=== PATIENT | male | born 1975 | race Hispanic/Latino ===

== ENCOUNTER 2023-07-10 01:13 | Emergency (ER) | payer SELFPAY ==
[2023-07-10] MEDS ORDERED: Mag-Al Plus 1200 MG/1200 MG/120 MG/30 ML UDCUP ONE (01:38)
[2023-07-10 01:40] LABS: #Basophils 0.1 thou/uL (0.0-0.2); #Eosinphils 0.1 thou/uL (0.0-0.7); #Monocytes 0.6 thou/uL (0.11-0.59); %Basophils 0.8 % (0.0-1.0); %Eosinophils 0.8 % (0.0-10.0); %Lymphocytes 14.2 % (21.0-51.0); %Monocytes 4.6 % (0.0-10.0); %Neutrophils 79.6 % (42.0-75.0); Hematocrit 47.9 % (42.0-52.0); Hemoglobin 16.3 g/dL (14.0-18.0); Mean Corpuscular Hemoglobin 31.2 pg (27.0-31.0); Mean Corpuscular Volume 91.8 fl (78.0-98.0); Mean Platelet Volume 9.5 fL (7.4-10.4); Platelet Count 276 10x3/uL (130-400); RBC Distribution Width 11.7 % (11.5-14.5); Red Blood Cell (RBC) Count 5.22 mill/uL (4.70-6.10); White Blood Cell (WBC) Count 13.9 10x3/uL (4.8-10.8)
[2023-07-10] MEDS ORDERED: Famotidine/PF 20 mg/2ml Vial ONE (01:40)
[2023-07-10] MEDS ORDERED: Lidocaine 2% Viscous 100 ML BOTTLE ONE (01:40)
[2023-07-10 01:53] LABS: ALT (SGPT) 58 U/L (8-55); AST (SGOT) 19 U/L (5-34); Albumin 4.6 g/dL (3.5-5.0); Alkaline Phosphatase 96 U/L (40-110); Anion Gap 15 mmol/L (10-20); BUN (Urea Nitrogen) 21 mg/dL (8.9-20.6); Bilirubin, Total 0.5 mg/dL (0.2-1.2); Calc. Creatinine Clearance 0 mL/min (70-130); Calcium 9.8 mg/dL (7.8-10.44); Carbon Dioxide 26 mmol/L (22-29); Chloride 101 mmol/L (98-107); Estimated GFR 64; Globulin 2.7 g/dL (2.4-3.5); Glucose 153 mg/dL (70-105); Lipase 12 U/L (8-78); Protein, Total 7.3 g/dL (6.0-8.3); Sodium 138 mmol/L (136-145)
[2023-07-10 01:55] LABS: Troponin I Less than 0.010 ng/mL (< 0.028)
[2023-07-10] MEDS ORDERED: Lactated Ringer's 1,000 ML BAG ONE (08:36)
== END 2023-07-10 03:09 | disposition home or self-care (01) ==
LOC: MADERS 01:13
DX: R10.13 Epigastric pain (principal); N17.9 Acute kidney failure, unspecified; R03.0 Elevated blood-pressure reading, without diagnosis of hypertension
CPT/HCPCS: 71046; 80053; 83690; 84484; 85025; 93005; 96361; 96374; J7120; S0028